=== PATIENT | male | born 1955 | race African-American/Black ===

== ENCOUNTER 2021-04-26 02:42 | Emergency (ER) | payer SELFPAY ==
[~2021-04-26] VITALS: Ht 180.3 cm; Wt 80.0 kg
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
--- NOTE | 2021-04-26 03:08 | NUR ---
PT STATES HE DOES NOT TAKE ANY MEDICATIONS
--- NOTE | 2021-04-26 04:38 | NUR ---
Patient is SLEEPING comfortably in bed. EYES CLOSED. Bed in lowest, rails engaged, call light on lap. Vital Signs within normal limits. WCTM.
[2021-04-26 05:09] VITALS: BP 134/80
--- NOTE | 2021-04-26 05:17 | NUR ---
Patient/Caregiver given discharge instructions and they have confirmed that they understand the instructions. Patient ambulatory with steady gait. NAD, all questions answered appropriately, denies additional needs at this time. No personal belongings left in room after discharge.
== END 2021-04-26 05:19 | disposition home or self-care (01) ==
LOC: ED 05:00
DX: S05.31XA Ocular laceration without prolapse or loss of intraocular tissue, right eye, initial encounter (principal); H57.11 Ocular pain, right eye; F17.210 Nicotine dependence, cigarettes, uncomplicated; Z72.9 Problem related to lifestyle, unspecified; Y04.8XXA Assault by other bodily force, initial encounter; Y93.89 Activity, other specified; Y92.89 Other specified places as the place of occurrence of the external cause; Y99.8 Other external cause status
CPT/HCPCS: 99283